=== PATIENT | male | born 1985 ===

== ENCOUNTER 2024-10-19 22:32 | Outpatient (REF) | payer OTHER, SELFPAY ==
[2024-10-19 15:00] LABS: Sperm(Post-Vasectomy) Absent
[2024-10-19 15:32] LABS: Second Tech Reviewed ABSENT
== END 2024-10-19 22:33 | disposition home or self-care (01) ==
LOC: LBN 22:32
PROVIDERS: Visit Provider Urology
DX: Z98.52 Vasectomy status (principal)
CPT/HCPCS: 89321